=== PATIENT | female | born 1970 | race Two or more races ===

== ENCOUNTER 2017-02-18 11:54 | Inpatient (IN) | payer MEDICAID, OTHER ==
[~2017-02-18] VITALS: Ht 154.9 cm; Wt 73.0 kg
[2017-02-18] MEDS ORDERED: SODIUM CHLORIDE 0.9% 500 ML IV ONE (12:15)
[2017-02-18] MEDS ORDERED: ASPIRIN 81MG TABLET PO STA (12:15)
[2017-02-18 12:46] LABS: CLARITY URINE CLEAR (CLEAR); COLOR URINE YELLOW (YELLOW); GLUCOSE URINE NEGATIVE (NEGATIVE); KETONES URINE NEGATIVE (NEGATIVE); LEUKOCYTE ESTERASE URINE NEGATIVE (NEGATIVE); NITRITE URINE NEGATIVE (NEGATIVE); OCCULT BLOOD URINE NEGATIVE (NEGATIVE); PH URINE 5.5 (4.5-8.0); PROTEIN URINE NEGATIVE (NEGATIVE); SPECIFIC GRAVITY URINE 1.017 (1.005-1.030); UROBILINOGEN URINE 0.2 E.U./dL (0.2-1.0)
[2017-02-18 13:06] LABS: BASOPHILS % 0.4 % (0.0-2.0); EOSINOPHILS % 1.5 % (0.0-5.0); HEMATOCRIT. 35.6 % (36.0-48.0); HEMOGLOBIN. 11.6 g/dL (12.0-16.0); LYMPHOCYTES % 19.9 % (20.0-50.0); MEAN CORPUSCULAR HEMOGLOBIN 24.3 pg (28.0-32.0); MEAN CORPUSCULAR VOLUME 74.4 fL (81.0-99.0); MEAN PLATELET VOLUME 8.3 fl (7.4-10.4); MONOCYTES % 7.1 % (2.0-8.0); NEUTROPHILS % 71.1 % (40.0-76.0); PLATELET 244 x1000/uL (130-400); RED BLOOD CELL COUNT 4.79 mill/uL (4.2-5.4); RED CELL DISTRIBUTION WIDTH 14.1 % (11.6-14.6)
[2017-02-18 13:15] LABS: HCG SCREEN NEGATIVE
[2017-02-18 13:17] LABS: D-DIMER 0.37 mg/L FEU (<0.50); PARTIAL THROMBOPLASTIN TIME 26.9 sec (24.0-34.0); PROTHROMBIN TIME 10.4 sec
[2017-02-18 13:22] LABS: CARBON DIOXIDE 24 mEq/L (21-32); CHLORIDE 111 mEq/L (98-107)
[2017-02-18 13:25] LABS: TROPONIN I 0.03 ng/mL (0.00-0.04)
[2017-02-18] MEDS ORDERED: DILTIAZEM HCL 5MG/ML 5ML VIAL IV PRN (16:00)
[2017-02-18 17:00] VITALS: BP 121/81
[2017-02-18 17:19] VITALS: BP 121/80
[2017-02-18] MEDS ORDERED: FERR-63 PO (17:38)
[2017-02-18] MEDS ORDERED: CHOL100026 PO (17:39)
[2017-02-18] MEDS ORDERED: POTASSIUM CHLORIDE 20MEQ TABLET SR PO NR (18:00)
[2017-02-18] MEDS ORDERED: ONDANSETRON HCL 4MG/2ML VIAL IV PRN (18:00)
[2017-02-18] MEDS ORDERED: MAGNESIUM/ALUMINUM HYDROXIDE/SIMETHICONE 30ML UDC PO PRN (18:00)
[2017-02-18] MEDS ORDERED: LORAZEPAM 0.5MG TABLET PO PRN (18:00)
[2017-02-18] MEDS ORDERED: DIPHENHYDRAMINE 50MG/ML VIAL IV PRN (18:00)
[2017-02-18] MEDS ORDERED: CLONIDINE 0.1MG TABLET PO PRN (18:00)
[2017-02-18] MEDS ORDERED: ACETAMINOPHEN 325MG TABLET PO PRN (18:00)
[2017-02-18 18:02] LABS: *AMPHETAMINES SCREEN URINE NEGATIVE (NEGATIVE); *BARBITURATES SCREEN URINE NEGATIVE (NEGATIVE); *BENZODIAZEPINES SCREEN URINE NEGATIVE (NEGATIVE); *COCAINE SCREEN URINE NEGATIVE (NEGATIVE); CANNABINOID URINE SCREEN NEGATIVE (NEGATIVE); METHADONE URINE SCREEN NEGATIVE (NEGATIVE); OPIATES URINE SCREEN NEGATIVE (NEGATIVE); PHENCYCLIDINE URINE SCREEN NEGATIVE (NEGATIVE)
[2017-02-18 20:00] VITALS: BP 126/67
[2017-02-18 22:02] VITALS: BP 124/78
[2017-02-18] MEDS: SODIUM CHLORIDE 0.9% INJ 3ML FLUSH IVF SCH (22:02)
[2017-02-18] MEDS: DILTIAZEM HCL 30MG TABLET PO SCH (22:03)
[2017-02-19] VITALS (11 sets, daily range): BP systolic 86–129; BP diastolic 58–86
[2017-02-19] MEDS: SODIUM CHLORIDE 0.9% INJ 3ML FLUSH IVF SCH ×2 (05:42→13:55)
[2017-02-19] MEDS: DILTIAZEM HCL 30MG TABLET PO SCH ×2 (06:00→13:52)
[2017-02-19 06:38] LABS: BASOPHILS % 0.5 % (0.0-2.0); EOSINOPHILS % 3.1 % (0.0-5.0); HEMOGLOBIN. 11.1 g/dL (12.0-16.0); MEAN CORPUSCULAR HEMOGLOBIN 24.5 pg (28.0-32.0); MEAN CORPUSCULAR VOLUME 75.1 fL (81.0-99.0); MONOCYTES % 8.9 % (2.0-8.0); NEUTROPHILS % 46.5 % (40.0-76.0); PLATELET 238 x1000/uL (130-400); RED BLOOD CELL COUNT 4.53 mill/uL (4.2-5.4); RED CELL DISTRIBUTION WIDTH 14.1 % (11.6-14.6)
[2017-02-19 07:52] LABS: CARBON DIOXIDE 24 mEq/L (21-32); CHLORIDE 107 mEq/L (98-107); CREATINE KINASE 102 IU/L (26-192); CREATINE KINASE MB FRACTION 1.2 ng/mL (0.5-3.6); HDL CHOLESTEROL 38 mg/dL (40-59); LDL CHOLESTEROL 88 mg/dL (5-100); TROPONIN I 0.04 ng/mL (0.00-0.04)
== END 2017-02-19 18:43 | disposition home or self-care (01) | DRG 201 ==
LOC: ER 12:17 → 3WST 15:24 → EDBEDREQ 15:26 → EDBEDREQTM 15:26 → ENRESERV 15:50
PROVIDERS: ADMIT Internal Medicine; ATTEND Internal Medicine
DX: I47.1 Supraventricular tachycardia (principal); I10 Essential (primary) hypertension; D64.9 Anemia, unspecified; Z87.891 Personal history of nicotine dependence; Z91.14 Patient's other noncompliance with medication regimen
CPT/HCPCS: 36415; 71010; 80053; 80061; 80305; 81003; 82550; 82553; 83690; 83735; 83880; 84443; 84484; 84703; 85025; 85379; 85610; 85730; 93005; 93306; 93970; 96360; 96361; 99285; G0482; J7030; J7040

== ENCOUNTER 2017-08-22 07:50 | Emergency (ER) | payer MEDICAID, OTHER ==
[~2017-08-22] VITALS: Ht 160 cm; Wt 62.0 kg
[~2017-08-22 07:50] MED LIST: CHOL100044 PO; FERR-63 PO
[2017-08-22] MEDS ORDERED: DILT120C11 PO (07:56)
[2017-08-22 09:03] LABS: BASOPHILS % 1.3 % (0.0-2.0); EOSINOPHILS % 2.6 % (0.0-5.0); HEMATOCRIT. 36.4 % (36.0-48.0); HEMOGLOBIN. 11.7 g/dL (12.0-16.0); LYMPHOCYTES % 20.9 % (20.0-50.0); MEAN CORPUSCULAR HEMOGLOBIN 24.4 pg (28.0-32.0); MEAN CORPUSCULAR VOLUME 75.8 fL (81.0-99.0); MEAN PLATELET VOLUME 8.3 fl (7.4-10.4); MONOCYTES % 6.6 % (2.0-8.0); NEUTROPHILS % 68.6 % (40.0-76.0); PLATELET 331 x1000/uL (130-400)
[2017-08-22 09:08] LABS: KETONES URINE NEGATIVE (NEGATIVE); LEUKOCYTE ESTERASE URINE TRACE (NEGATIVE); NITRITE URINE NEGATIVE (NEGATIVE); OCCULT BLOOD URINE NEGATIVE (NEGATIVE); PROTEIN URINE NEGATIVE (NEGATIVE); SPECIFIC GRAVITY URINE 1.011 (1.005-1.030); UROBILINOGEN URINE 0.2 E.U./dL (0.2-1.0)
[2017-08-22 09:10] LABS: CLARITY URINE CLOUDY (CLEAR); COLOR URINE YELLOW (YELLOW)
[2017-08-22 09:12] LABS: PARTIAL THROMBOPLASTIN TIME 26.1 sec (23.4-31.0); PROTHROMBIN TIME 10.4 sec (9.4-11.6)
[2017-08-22 09:21] LABS: CARBON DIOXIDE 26 mEq/L (21-32); CHLORIDE 106 mEq/L (98-107); T4 FREE 1.01 ng/dL (0.76-1.46); TROPONIN I < 0.02 ng/mL (0.00-0.04)
[2017-08-22 10:00] LABS: *AMPHETAMINES SCREEN URINE NEGATIVE (NEGATIVE); *BARBITURATES SCREEN URINE NEGATIVE (NEGATIVE); *BENZODIAZEPINES SCREEN URINE NEGATIVE (NEGATIVE); *COCAINE SCREEN URINE NEGATIVE (NEGATIVE); CANNABINOID URINE SCREEN NEGATIVE (NEGATIVE); METHADONE URINE SCREEN NEGATIVE (NEGATIVE); OPIATES URINE SCREEN NEGATIVE (NEGATIVE); PHENCYCLIDINE URINE SCREEN NEGATIVE (NEGATIVE)
[2017-08-22] MEDS ORDERED: IBUPROFEN 600MG TABLET PO ONE (10:15)
[2017-08-22 12:05] VITALS: BP 121/79
== END 2017-08-22 13:54 | disposition home or self-care (01) ==
LOC: ER 08:09
DX: I47.1 Supraventricular tachycardia (principal); R79.1 Abnormal coagulation profile
CPT/HCPCS: 36415; 71010; 80053; 80305; 81001; 81025; 84439; 84443; 84481; 84484; 85025; 85610; 85730; 93005; 99285; Z7610

== ENCOUNTER 2017-11-16 21:19 | Emergency (ER) | payer OTHER ==
[~2017-11-16 21:19] MED LIST changes: +DILT120C11 PO
[2017-11-17 02:00] VITALS: BP 148/74
[2017-11-17] MEDS ORDERED: DILTIAZEM HCL 30MG TABLET PO ONE (02:00)
== END 2017-11-17 02:17 | disposition home or self-care (01) ==
LOC: ER 21:47
DX: Z76.0 Encounter for issue of repeat prescription (principal); I10 Essential (primary) hypertension
CPT/HCPCS: 99283

== ENCOUNTER 2020-10-30 12:25 | Inpatient (IN) | payer OTHER ==
[~2020-10-30] VITALS: Ht 154.9 cm; Wt 73.7 kg
[2020-10-30] MEDS ORDERED: ASPIRIN 81MG TABLET PO ONE (12:45)
[2020-10-30] MEDS ORDERED: DILTIAZEM HCL 5MG/ML 5ML VIAL IV ONE (12:45)
[2020-10-30] MEDS ORDERED: SODIUM CHLORIDE 0.9% 1,000 ML IV ONE (12:45)
[2020-10-30 12:58] LABS: BASOPHILS % 0.6 % (0.0-2.0); HEMATOCRIT. 40.8 % (36.0-48.0); LYMPHOCYTES % 31.2 % (20.0-50.0); MEAN CORPUSCULAR VOLUME 75.3 fL (81.0-99.0); MEAN PLATELET VOLUME 9.1 fl (7.4-10.4); MONOCYTES % 6.7 % (2.0-8.0); NEUTROPHILS % 58.5 % (40.0-76.0); PLATELET 281 x1000/uL (130-400); RED BLOOD CELL COUNT 5.41 mill/uL (4.2-5.4); RED CELL DISTRIBUTION WIDTH 13.9 % (11.6-14.6)
[2020-10-30 13:06] LABS: CHLORIDE 107 mEq/L (98-107)
[2020-10-30 13:13] LABS: ETHANOL BLOOD < 10 mg/dL
[2020-10-30 13:32] LABS: HCG SCREEN NEGATIVE
[2020-10-30 13:48] LABS: PARTIAL THROMBOPLASTIN TIME 27.2 sec (23.4-31.0); PROTHROMBIN TIME 10.7 sec (9.6-11.0)
[2020-10-30 13:49] LABS: *AMPHETAMINES SCREEN URINE NEGATIVE (NEGATIVE); *BARBITURATES SCREEN URINE NEGATIVE (NEGATIVE); *BENZODIAZEPINES SCREEN URINE NEGATIVE (NEGATIVE); METHADONE URINE SCREEN NEGATIVE (NEGATIVE)
[2020-10-30 13:50] LABS: CANNABINOID URINE SCREEN NEGATIVE (NEGATIVE); OPIATES URINE SCREEN NEGATIVE (NEGATIVE); PHENCYCLIDINE URINE SCREEN NEGATIVE (NEGATIVE)
[2020-10-30 13:51] LABS: *COCAINE SCREEN URINE NEGATIVE (NEGATIVE)
[2020-10-30] MEDS ORDERED: CEFTRIAXONE 1 G PREMIX 50 ML IV ONE (14:00)
[2020-10-30] MEDS ORDERED: AZITHROMYCIN 500 MG in DEXT 5% WATER 250 ML IV ONE (14:00)
[2020-10-30] MEDS ORDERED: DEXAMETHASONE 10 MG/ML VIAL IV ONE (14:45)
[2020-10-30] MEDS ORDERED: HYDROCODONE/ACETAMINOPHEN 5/325MG TABLET PO PRN (16:30)
[2020-10-30] MEDS ORDERED: DOCUSATE SODIUM 100MG CAPSULE PO PRN (16:30)
[2020-10-30] MEDS ORDERED: CLONIDINE 0.1MG TABLET PO PRN (16:30)
[2020-10-30] MEDS ORDERED: MAGNESIUM/ALUMINUM HYDROXIDE/SIMETHICONE 30ML UDC PO PRN (16:30)
[2020-10-30] MEDS ORDERED: LORAZEPAM 0.5MG TABLET PO PRN (16:30)
[2020-10-30] MEDS ORDERED: ONDANSETRON HCL 4MG/2ML INJ IV PRN (16:30)
[2020-10-30] MEDS ORDERED: ACETAMINOPHEN 325MG TABLET PO PRN (16:30)
[2020-10-30] MEDS: SODIUM CHLORIDE 0.9% 1,000 ML IV SCH (18:09)
[2020-10-30] MEDS: DILTIAZEM HCL 30MG TABLET PO SCH (18:09)
[2020-10-30 22:00] VITALS: BP 106/73
[2020-10-31] MEDS: DILTIAZEM HCL 30MG TABLET PO SCH ×4 (00:48→17:32)
[2020-10-31] MEDS: ACETAMINOPHEN 325MG TABLET PO PRN ×3 (00:53→15:09)
[2020-10-31 04:30] LABS: BASOPHILS % 0.3 % (0.0-2.0); HEMATOCRIT. 36.1 % (36.0-48.0); HEMOGLOBIN. 11.7 g/dL (12.0-16.0); LYMPHOCYTES % 12.3 % (20.0-50.0); MEAN CORPUSCULAR HEMOGLOBIN 24.2 pg (28.0-32.0); MEAN CORPUSCULAR VOLUME 74.8 fL (81.0-99.0); MONOCYTES % 1.2 % (2.0-8.0); NEUTROPHILS % 86.2 % (40.0-76.0); PLATELET 272 x1000/uL (130-400); RED BLOOD CELL COUNT 4.83 mill/uL (4.2-5.4); RED CELL DISTRIBUTION WIDTH 13.8 % (11.6-14.6)
[2020-10-31 04:51] LABS: CHLORIDE 108 mEq/L (98-107)
[2020-10-31 04:57] LABS: LDL CHOLESTEROL 109 mg/dL (5-100)
[2020-10-31 04:59] LABS: HDL CHOLESTEROL 48 mg/dL (40-59)
[2020-10-31 06:00] VITALS: BP 105/57
[2020-10-31 07:43] VITALS: BP 100/57
[2020-10-31 08:00] VITALS: BP 132/60
[2020-10-31] MEDS: SODIUM CHLORIDE 0.9% 1,000 ML IV SCH (11:59)
[2020-10-31 12:00] VITALS: BP 104/68
[2020-10-31 16:00] VITALS: BP 119/77
[2020-10-31] MEDS: ATORVASTATIN CALCIUM 10MG TABLET PO SCH (20:51)
[2020-11-01] VITALS (7 sets, daily range): BP systolic 104–135; BP diastolic 57–87
[2020-11-01 07:37] LABS: BASOPHILS % 0.6 % (0.0-2.0); EOSINOPHILS % 0.3 % (0.0-5.0); HEMATOCRIT. 33.9 % (36.0-48.0); LYMPHOCYTES % 26.9 % (20.0-50.0); MEAN CORPUSCULAR HEMOGLOBIN 24.4 pg (28.0-32.0); MEAN CORPUSCULAR VOLUME 75.3 fL (81.0-99.0); MEAN PLATELET VOLUME 9.2 fl (7.4-10.4); MONOCYTES % 5.9 % (2.0-8.0); NEUTROPHILS % 66.3 % (40.0-76.0); PLATELET 262 x1000/uL (130-400); RED CELL DISTRIBUTION WIDTH 13.9 % (11.6-14.6)
[2020-11-01] MEDS: SODIUM CHLORIDE 0.9% 1,000 ML IV SCH (07:41)
[2020-11-01] MEDS ORDERED: MORPHINE SULFATE 2 MG/ML CPJ (NOT FOR IM USE) IV PRN (08:00)
[2020-11-01] MEDS ORDERED: ONDANSETRON HCL 4MG/2ML INJ IV PRN (08:00)
[2020-11-01] MEDS ORDERED: MEPERIDINE HCL/PF 25MG/ML CPJ IV PRN (08:00)
[2020-11-01] MEDS ORDERED: SODIUM CHLORIDE 0.9% 1,000 ML IV ONE (08:00)
[2020-11-01] MEDS ORDERED: HYDROMORPHONE HCL/PF 2MG/ML CPJ IV PRN (08:00)
[2020-11-01 08:02] LABS: CHLORIDE 107 mEq/L (98-107)
[2020-11-01] MEDS ORDERED: MIDAZOLAM HCL 2 MG/2 ML VIAL ONE (08:18)
[2020-11-01] MEDS ORDERED: FENTANYL CITRATE/PF 50MCG/ML 2ML VIAL ONE (08:18)
[2020-11-01] MEDS ORDERED: LIDOCAINE HCL 1% 20ML VIAL (Pyxis) INJ ONE (08:22)
[2020-11-01] MEDS ORDERED: EPHEDRINE SULFATE 50MG/ML VIAL ONE (08:51)
[2020-11-01] MEDS ORDERED: PROPOFOL 10MG/ML 100ML 100 ML IV ONE (08:51)
[2020-11-01] MEDS ORDERED: METOCLOPRAMIDE HCL 10MG/2ML VIAL ONE (08:51)
[2020-11-01] MEDS ORDERED: LIDOCAINE HCL 2% 5ML SYRINGE IV ONE (08:51)
[2020-11-01] MEDS ORDERED: ONDANSETRON HCL 4MG/2ML INJ ONE (08:51)
[2020-11-01] MEDS ORDERED: PHENYLEPHRINE HCL 10 MG/ML 1ML (IV VIAL) IV ONE (09:13)
[2020-11-01] MEDS ORDERED: STERILE WATER FOR INJECTION 10ML VIAL ONE (09:13)
[2020-11-01] MEDS ORDERED: DOBUTAMINE 250MG PREMIX 250 ML IV ONE (09:41)
[2020-11-01] MEDS ORDERED: ADENOSINE 3 MG/ML 2ML VIAL IV ONE (10:23)
[2020-11-01] MEDS ORDERED: HEPARIN SODIUM 1,000 UNIT/1ML VIAL IV ONE (10:30)
[2020-11-01] MEDS ORDERED: ATROPINE SULFATE 1MG/10ML SYR IV PRN (11:45)
[2020-11-01] MEDS: ATORVASTATIN CALCIUM 10MG TABLET PO SCH (20:36)
[2020-11-02] VITALS (12 sets, daily range): BP systolic 95–131; BP diastolic 56–90
[2020-11-02] MEDS: SODIUM CHLORIDE 0.9% 1,000 ML IV SCH (05:19)
[2020-11-02 07:08] LABS: BASOPHILS % 0.6 % (0.0-2.0); EOSINOPHILS % 1.4 % (0.0-5.0); HEMATOCRIT. 32.7 % (36.0-48.0); HEMOGLOBIN. 10.7 g/dL (12.0-16.0); LYMPHOCYTES % 34.8 % (20.0-50.0); MEAN CORPUSCULAR HEMOGLOBIN 24.7 pg (28.0-32.0); MEAN CORPUSCULAR VOLUME 75.8 fL (81.0-99.0); MEAN PLATELET VOLUME 9.1 fl (7.4-10.4); NEUTROPHILS % 55.2 % (40.0-76.0); PLATELET 233 x1000/uL (130-400); RED BLOOD CELL COUNT 4.32 mill/uL (4.2-5.4); RED CELL DISTRIBUTION WIDTH 13.6 % (11.6-14.6)
[2020-11-02 07:24] LABS: CHLORIDE 105 mEq/L (98-107)
[2020-11-02] MEDS ORDERED: ASPIRIN 81MG TABLET PO SCH (09:00)
== END 2020-11-02 20:35 | disposition home or self-care (01) | DRG 175 ==
LOC: ER 12:25 → 7WST 14:47 → EDBEDREQTM 14:50 → EDBEDREQ 14:50 → ENRESERV 20:13 → CANRESERV 20:13 → ENRESERV 21:02 → 5WST 10-31 04:30 → 3WST 11-01 13:40
PROVIDERS: ADMIT Internal Medicine; ATTEND Internal Medicine
PROC: 02583ZZ Destruction of Conduction Mechanism, Percutaneous Approach (ICD-10-PCS; principal; 2020-11-01)
PROC: 4A023FZ Measurement of Cardiac Rhythm, Percutaneous Approach (ICD-10-PCS; 2020-11-01)
PROC: 4A0234Z Measurement of Cardiac Electrical Activity, Percutaneous Approach (ICD-10-PCS; 2020-11-01)
PROC: 02K83ZZ Map Conduction Mechanism, Percutaneous Approach (ICD-10-PCS; 2020-11-01)
DX: I47.1 Supraventricular tachycardia (principal); R65.10 Systemic inflammatory response syndrome (SIRS) of non-infectious origin without acute organ dysfunction; I24.8 Other forms of acute ischemic heart disease; E78.5 Hyperlipidemia, unspecified; I10 Essential (primary) hypertension; M79.661 Pain in right lower leg; F41.9 Anxiety disorder, unspecified; Z20.822 Contact with and (suspected) exposure to COVID-19; Z79.899 Other long term (current) drug therapy; Z87.891 Personal history of nicotine dependence; Z98.891 History of uterine scar from previous surgery
CPT/HCPCS: 36415; 71045; 80048; 80053; 80061; 80305; 80320; 83036; 83605; 83735; 83880; 84443; 84484; 84703; 85025; 93005; 93306; 93613; 93621; 93623; 93653; 93970; 96365; 99291; A4216; C1730; C1731; C1732; C1893; J0153; J0456; J0696; J1100; J1250; J1644; J2250; J2370; J2405; J2704; J2765; J3010; J3490; J7030; J7060; U0003; G0480